=== PATIENT | female | born 1960 | race Caucasian/White ===

== ENCOUNTER 2017-04-05 21:15 | Emergency (ER) | payer OTHER ==
[~2017-04-05] VITALS: Ht 156.2 cm; Wt 92.4 kg
[~2017-04-05 21:15] MED LIST: AZIT250T PO; BCPILLS PO
[2017-04-05 21:17] VITALS: TEMP 36.4; Ht 156.2 cm; Wt 92.4 kg
[2017-04-05] MEDS ORDERED: ACETAMINOPHEN 500 MG TAB PO STA (21:33)
--- NOTE | 2017-04-05 21:52 | DIAGNOSTIC IMAGING REPORT ---
R FOOT MIN 3 VIEWS ROUTINE CLINICAL HISTORY: R foot pain, no trauma pain COMPARISON: None. DISCUSSION: Degenerative change first metatarsophalangeal joint. All remaining osseous structures are unremarkable. Alignment is anatomic. There is no evidence for fracture or dislocation. Subtalar joint is intact. There is no evidence for soft tissue swelling. IMPRESSION: Degenerative change first metatarsophalangeal joint. Otherwise negative study. The above report was generated using voice recognition software. It may contain grammatical, syntax or spelling errors. Electronically signed by: Earl Garcia M.D. 04/05/2017 9:51 PM Dictated Date/Time: 04/05/2017 9:50 PM
[2017-04-05] MEDS ORDERED: CHOL1000 PO (21:56)
[2017-04-05] MEDS ORDERED: AMPH30CA3 PO (21:56)
[2017-04-05] MEDS ORDERED: THYROID PO (21:56)
[2017-04-05] MEDS ORDERED: CALC-5 PO (21:56)
[2017-04-05] MEDS ORDERED: LEVO125T5 PO (21:56)
[2017-04-05] MEDS ORDERED: ASCO500T3 PO (21:56)
--- NOTE | 2017-04-05 21:56 | EMERGENCY ROOM VISIT NOTE ---
History First contact with patient: 21:26 Chief Complaint: FOOT PAIN Stated Complaint: HURT R FOOT History of Present Illness The patient is a 56 year old female who presents to the Emergency Room via private vehicle accompanied by with complaints of "her right foot". The patient states that earlier today she was doing a lot of walking, and ascending stairs. She states she has a bone spur on the right foot therefore was doing stretches today that would help. She states that she was doing a lot of stretches. This included putting her foot up against a wall with extreme dorsiflexion as well as also on the edge of steps with her toes doing stretches for the plantar fascia. She states that it was when she went to stand up at one point that she felt pain in the right midfoot and in the plantar fascia region. She has a history of bone spurs. She rates the overall pain as a 6/ 10. She notes no pain in the calf. She states that there are perhaps some not feelings in both calves but notes she was very active today. There is no shortness of breath. No calf swelling. Of additional note she states that for 4 days now she has had postnasal drip, and rhinorrhea. Review of Systems A complete 6-point Review of Systems was discussed with the patient, with pertinent positives and negatives listed in the History of Present Illness. All remaining Review of Systems questions can be considered negative unless otherwise specified. Past Medical/Surgical History Bone spurs of the same foot Family History No pertinent Social History Smoking Status: Never Smoker Patient lives locally. Current/Historical Medications Scheduled Amphetamine-Dextroamphetamine 30MG (Adderall Xr 30MG), 60 MG PO DAILY Ascorbic Acid (Vitamin C), 500 MG PO DAILY Calcium-Magnesium W/ Vitamin D (Calcium 500), 500 MG PO BID Cholecalciferol (Vitamin D3), 1,000 INTER.UNIT PO TID Levothyroxine Sodium (Levothyroxine Sodium), 125 MCG PO DAILY Prednisone (Prednisone Tab), 0 PO DAILY [Desicated Thyroid], 45 MG PO DAILY Physical Exam Vital Signs Date Time Temp Pulse Resp B/P (MAP) Pulse Ox O2 Delivery O2 Flow Rate FiO2 04/05/17 22:16 81 19 138/89 96 04/05/17 21:17 36.4 86 16 157/79 96 Room Air Physical Exam VITAL SIGNS - Vital signs and nursing notes were reviewed. Stable. Hypertensive. Afebrile. GENERAL -56-year-old female appearing her stated age who is in no acute distress. Communicates well with provider and answers questions appropriately. SKIN - Without rashes. Skin overlying the right foot is unremarkable. No breaks in the integument. No erythema, edema or excessive or unreasonable warmth. HEAD - NC/AT. EARS - No deformities of external structures noted on gross examination bilaterally. No evidence of infection. NOSE - Midline and without cyanosis. No epistaxis or purulent drainage noted. Moist nasal mucosa. MOUTH/OROPHARYNX - Without perioral cyanosis. LUNGS - Chest wall symmetric without accessory muscle use, intercostals retractions, or central cyanosis. Normal vesicular breath sounds CTA B/L. No wheezes, rales, or rhonchi appreciated. CARDIAC - RRR with S1/S2. No murmur, rubs, or gallops appreciated. EXTREMITIES - No clubbing or peripheral cyanosis. No pretibial edema present. Tenderness to palpation overlying the first metatarsal mid region, as well as a plantar fascial region. Excellent pulses in this region. +5/5 strength noted in UE/LE bilaterally. Medical Decision & Procedures ER Provider Diagnostic Interpretation: R FOOT MIN 3 VIEWS ROUTINE CLINICAL HISTORY: R foot pain, no trauma pain COMPARISON: None. DISCUSSION: Degenerative change first metatarsophalangeal joint. All remaining osseous structures are unremarkable. Alignment is anatomic. There is no evidence for fracture or dislocation. Subtalar joint is intact. There is no evidence for soft tissue swelling. IMPRESSION: Degenerative change first metatarsophalangeal joint. Otherwise negative study. The above report was generated using voice recognition software. It may contain grammatical, syntax or spelling errors. Electronically signed by: Earl Garcia M.D. 04/05/2017 9:51 PM Medications Administered Medications (Trade) Dose Ordered Sig/Debra Route Start Time Stop Time Status Last Admin Dose Admin Acetaminophen (Tylenol Tab) 500 mg NOW STAT PO 04/05/17 21:33 04/05/17 21:34 DC 04/05/17 21:33 500 MG Medical Decision Patient was seen and evaluated as above. She presents to us today of right foot pain. She was given ice packs, Tylenol and x-rays were obtained. No acute fracture or dislocation. I suspect that her fasciitis, as well as overuse and she was stretching today. She is encouraged upon use of conservative management. She is to follow-up with her family doctor or perhaps orthopedics if this persists. I do not suspect DVT however she was educated upon risk of this in the future and worrisome symptoms in which to return. She was educated upon management, educated upon worrisome symptoms in which to return, had questions as per the discharge, and was discharged home in good condition. She notes that she also has these symptoms of postnasal drip and rhinorrhea for the past 4 days. She has had prednisone in the past with good relief and questions if this will be beneficial. I will provide her a short prescription of this. In the evaluation and treatment of this patient, the following differential diagnoses were considered: Lisfranc Fracture, Talus Fracture, Tarsal Fracture, Foot Sprain. Impression Primary Impression: Foot pain Departure Information Dispostion Home / Self-Care Condition GOOD Prescriptions Prednisone (Prednisone Tab) 20 Mg Tab 0 PO DAILY, #7 TAB 2 TABS DAILY FOR 2 DAYS, THEN 1 TAB DAILY FOR 2 DAYS, THEN 1/2 TAB DAILY FOR 2 DAYS. Prov: Nilton Coleman PA-C 04/05/17 Referrals Radha Stock D.O. (PCP) Michi Keita MD Patient Instructions My [facility] Additional Instructions You have been treated in the Emergency Department for a R foot pain. You have been prescribed Prednisone to be take as directed. This is an anti- inflammatory medicine to be used to help minimize your symptoms. You should take the COMPLETE course of the medication. For pain control, you can use the following [id number] medicines: - Regular strength (325mg/tab) Tylenol (acetaminophen) 2 tabs every 4-6 hours as needed. Do not exceed 12 tablets in a 24 hour period. Avoid taking more than 3 grams (3000 mg) of Tylenol per day. This includes any other sources of acetaminophen you may take on a regular basis. - Regular strength (200 mg/tab) Advil (ibuprofen) 1-2 tabs every 4-6 hours as needed. Do not exceed a dose of 3200 mg per day. If this is a recent injury (<24 hrs), ice can be applied to the area of pain for the first 3 days to help decrease pain and inflammation. You have been provided the number for an Orthopaedic Surgeon. You should call this number as soon as possible to establish a follow-up visit from today's Emergency Department visit. Keep the foot brace/splint in place until cleared by Orthopedics. Use the crutches you have been provided to keep ALL weight off of the foot until weight bearing is tolerable. Return to the Emergency Department if your current symptoms worsen despite treatment course outlined above, or if you develop any of the following symptoms : intractable pain despite aforementioned treatment course or new onset of numbness or tingling of the foot.
[2017-04-05] MEDS ORDERED: PRED20TA2 PO (22:04)
[2017-04-05 22:16] VITALS: BP 138/89; PULSE 81; O2SAT 96
[2017-09-16] MEDS ORDERED: HYDR-5688 PO (10:36)
[2017-09-16] MEDS ORDERED: ONDA8TAB62 SL (10:36)
[2017-09-16] MEDS ORDERED: ELAS-1213 EXT (10:41)
== END 2017-04-05 22:17 | disposition home or self-care (01) ==
LOC: C.EDB 21:15 → C.EDD 22:17
DX: M79.671 Pain in right foot (principal); M19.071 Primary osteoarthritis, right ankle and foot; M77.9 Enthesopathy, unspecified

== ENCOUNTER 2022-12-10 09:54 | Inpatient (IN) ==
--- NOTE | 2022-12-10 10:12 | Emergency Department Note ---
Impression & Plan Overdose on Tylenol, Acute dehydration, Transaminitis, Nausea & vomiting ED Provider Note NAME: JENNIFER MARTIN AGE: 62 SEX: F : 1960 ARRIVES VIA: Walk-In INFORMANT: Patient, ED PROVIDER(S): Hamlet Day MD CHIEF COMPLAINT: Overdose MEDICAL DECISION MAKING: Patient presents due to concern for Tylenol overdose. IV was established and blood work was obtained along with Tylenol levels. I did speak with the [facility] Dalia who recommended treatment based on elevated LFTs of detectable Tylenol level given the patient's ingestion was last night. Patient does have a detectable Tylenol level and the patient does have elevated LFTs. N-acetylcysteine was ordered for treatment. Patient's blood work otherwise showed a normal white count H&H and platelet count. The patient's kidney function is normal. Hyponatremia noted at 130. Transaminitis with a bilirubin of 1.4 AST of 414, ALT 178 alk phos of 167. Patient's TSH is normal with negative salicylate and alcohol. I spoke with the on-call medical service and the patient was admitted to the medicine service by Dr. East. Critical Care: I have personally spent 55 minutes of critical care time in direct management of this patient. This includes bedside care, interpretation of diagnostic studies, and testing, discussion with consultants, patient, and family members, and other require inpatient management activities. This 55 minutes is in excess of all separately billable procedures. Prior /Outside records reviewed: I reviewed an operative report from Dr. Shearer from November 2018. Patient was seen for right foot failed Cartiva implant arthroplasty. Patient did have removal of the implant. Differential diagnosis: Overdose, medication side effect, dehydration, infection, hypoglycemia, electrolyte abnormalities, arrythmia, among other etiologies were considered. Diagnostics, as interpreted by me: ECG: Sinus tachycardia, rate of 107, wide QRS, right bundle branch block pattern. No ST elevations. Cardiac monitoring: An order was placed for continuous cardiac monitoring. The monitor shows a rate of 102 with tachycardic and regular rhythm. Patient was placed on pulse oximetry Medical decision rules: none Imaging studies: See below HPI: Patient presents due to concern for ingestion of Tylenol. The patient states that she had 3 handfuls of approximately 10 extract Tylenols sometime between 5 and 7:00 last evening. The patient states that she has been undergoing increasing stress with her brother undergoing divorce and requesting money for some sort of scan. The patient also relates that her daughter who is recently is recently become transgender and this has become very difficult on the family. Patient denies any falls or trauma. The patient states that she took her regularly scheduled medications yesterday as well as today but did not take anything else inappropriately. Patient has had associated nausea and vomiting with some epigastric abdominal discomfort. Patient denies any blood. No dysuria or difficulties with defecation. PAST MEDICAL HISTORY: See Below PAST SURGICAL HISTORY: See Below SOCIAL HISTORY: See Below HOME MEDICATIONS: See Below ALLERGIES: See Below VITALS: See Below PHYSICAL EXAMINATION: GENERAL: Anxious in appearance. EYE EXAM: Normal conjunctiva. PERRL, no anisocoria and EOM's grossly intact w/o pain. OROPHARYNX: Moist mucus membranes, grossly normal dentition. NECK: Supple, no nuchal rigidity, no adenopathy, non-tender. No signs of meningismus. FROM of the neck with good chin to chest and neck extension. No stridor. LUNGS: Clear to auscultation. Normal chest wall mechanics. HEART: Tachycardic and regular, no MRG. ABDOMEN: Abdomen soft, non-tender, no masses, no rebound or guarding. BACK: No CVA TTP. SKIN: No rashes and no bruising. UPPER EXTREMITIES: Upper extremities are grossly normal. LOWER EXTREMITIES: Grossly normal, no edema. NEURO EXAM: A&O x3, cranial nerves II-XII grossly intact, normal speech, moves all 4 extremities. Past Med/Surg History Medical History (Updated 12/11/22 @ 10:45 by Hamlet Day MD) Anxiety Attention deficit disorder (ADD) Depression Hypothyroid Osteoarthritis Personal history of gastric ulcer Surgical History H/O foot surgery RT FOOT (BONE SPUR) History of section X 1 History of tooth extraction Strabismus LEFT EYE Family History Son Family history of diabetes mellitus Social History Smoking Status: Never smoker Cigarettes Per Day: SMOKES OCCASIONALLY/NOT EVERDAY; Second Hand Exposure: No; Do You Dip or Chew Tobacco: No; Hx Alcohol Use: No Hx Substance Use: No Preferred Language: Malay Communication Ability: Effective Research And Development Technician Required: No Beliefs That Will Affect Care: None Current Living Situation: Spouse Other Information That Helps Us Care for You: No Feels Safe at Home: Yes Safety Concerns: Feels Safe At This Time Assistive Devices: Glasses Allergies Allergies Allergy/AdvReac Type Severity Reaction Status Date / Time Penicillins Allergy Intermediate SWELLING/HI Verified 12/25/18 15:31 VES Sulfa (Sulfonamide Allergy Mild RASH Verified 12/25/18 15:31 Antibiotics) sulfamethoxazole Allergy Mild RASH Verified 11/07/18 08:08 trimethoprim Allergy Mild RASH Verified 11/07/18 08:08 Home Meds Home Medications Medication Instructions Recorded Confirmed calcium carbonate 600 mg-vitamin 1 tab PO BID 12/29/17 12/10/22 D3 20 mcg (800 unit) chewable tablet (Caltrate 600 plus D) levothyroxine 125 mcg capsule 125 mcg PO QAM 12/29/17 12/10/22 Nature Thyroid 0.5 tab PO HS 05/16/18 12/10/22 ferrous sulfate 325 mg (65 mg 325 mg PO DAILY 05/16/18 12/10/22 iron) tablet (iron) lactobacillus combination no.4 3 3,000 mmu cells PO DAILY PRN Other 05/16/18 12/10/22 billion cell capsule (Probiotic) Estrogen 6 ml EXT DAILY 09/11/18 12/10/22 Progestin Syringe See Rx Instructions .Route .COMPLEX 12/10/22 12/10/22 fluoxetine 40 mg capsule 80 mg PO QAM 12/10/22 12/10/22 hydroxyzine HCl 25 mg tablet 25 mg PO PM 12/10/22 12/10/22 trazodone 50 mg tablet 50 mg PO HS PRN Sleep 12/10/22 12/10/22 Results & Data (ED) Vital Signs Vital Signs - 24 hr 12/10/22 12:47 Pulse Rate [Right Finger] 96 H Pulse Rhythm [Right Finger] Regular Pulse Strength [Right Finger] Normal Respiratory Rate 20 Respiratory Effort / Characteristics Non-Labored Respiratory Depth Normal Respiratory Pattern Regular Pulse Oximetry 97 Oxygen Delivery Method Room Air Home Medications Current Medication List: was personally reviewed by me Laboratory Data Attestation: I reviewed the patient's lab results. 12/10/22 10:05 09/04/23 16:53 Lab Results 12/10/22 12/10/22 12/10/22 Range/Units 10:05 10:05 10:05 WBC 9.63 (4.8-10.8) K/ul RBC 5.18 (4.20-5.40) M/uL Hgb 15.3 (12.0-16.0) g/dl Hct 43.9 (37.0-47.0) % MCV 84.7 (80.0-100.0) fL MCH 29.5 (25.0-34.0) pg MCHC 34.9 (32.0-36.0) g/dL RDW Std Deviation 50.7 H (36.4-46.3) fL RDW Coeff of Stefan 16.7 H (11.5-14.5) % Plt Count 223 (130-400) K/uL MPV 9.2 L (9.4-12.4) fL Immature Gran % (Auto) 0.2 % Neut % (Auto) 83.2 % Lymph % (Auto) 13.0 % Mccreary % (Auto) 2.9 % Eos % (Auto) 0.3 % Baso % (Auto) 0.4 % Neut # (Auto) 8.01 H (1.40-6.50) K/uL Lymph # (Auto) 1.25 (1.20-3.40) K/uL Mccreary # (Auto) 0.28 (0.11-0.59) K/uL Eos # (Auto) 0.03 (0.00-0.50) K/uL Baso # (Auto) 0.04 (0.00-0.20) K/uL Immature Gran # (Auto) 0.02 (0.01-0.20) K/uL PT 10.8 (9.0-12.0) Seconds INR 1.0 (0.9-1.1) APTT 27.9 (21.0-31.0) Seconds PTT Ratio 1.0 Sodium 130 L (136-145) mmol/L Potassium 4.1 (3.5-5.1) mmol/L Chloride 99 (98-107) mmol/L Carbon Dioxide 19 L (21-32) mmol/L Anion Gap 12 H (3-11) BUN 12 (6-23) mg/dl Creatinine 0.76 (0.6-1.2) mg/dl Est Cr Clr Drug Dosing 90.1 ml/min Est GFR ( Amer) 98.8 ml/min Est GFR (Non-Af Amer) 85.3 ml/min BUN/Creatinine Ratio 15.8 (10-20) Glucose 122 H (70-99(Fasting)) mg/dl Calcium 9.2 (8.6-10.3) mg/dl Phosphorus 3.5 (2.5-4.9) mg/dl Magnesium 1.8 (1.7-2.4) mg/dl Total Bilirubin 1.4 H (0.2-1.0) mg/dl AST 414 H (13-39) U/L ALT 178 H (7-52) U/L Alkaline Phosphatase 167 H (34-104) U/L Total Protein 7.5 (6.0-8.3) gm/dl Albumin 4.6 (3.4-5.0) gm/dl Globulin 2.9 (2.5-4.0) gm/dl Albumin/Globulin Ratio 1.6 (0.9-2) TSH (0.300-4.500) uIu/ml Salicylates (3.0-30) mg/dl Acetaminophen (10-30) ug/ml Ethyl Alcohol mg/dL (<10.0) mg/dl 12/10/22 12/10/22 12/10/22 Range/Units 10:05 10:05 10:47 WBC (4.8-10.8) K/ul RBC (4.20-5.40) M/uL Hgb (12.0-16.0) g/dl Hct (37.0-47.0) % MCV (80.0-100.0) fL MCH (25.0-34.0) pg MCHC (32.0-36.0) g/dL RDW Std Deviation (36.4-46.3) fL RDW Coeff of Stefan (11.5-14.5) % Plt Count (130-400) K/uL MPV (9.4-12.4) fL Immature Gran % (Auto) % Neut % (Auto) % Lymph % (Auto) % Mccreary % (Auto) % Eos % (Auto) % Baso % (Auto) % Neut # (Auto) (1.40-6.50) K/uL Lymph # (Auto) (1.20-3.40) K/uL Mccreary # (Auto) (0.11-0.59) K/uL Eos # (Auto) (0.00-0.50) K/uL Baso # (Auto) (0.00-0.20) K/uL Immature Gran # (Auto) (0.01-0.20) K/uL PT (9.0-12.0) Seconds INR (0.9-1.1) APTT (21.0-31.0) Seconds PTT Ratio Sodium (136-145) mmol/L Potassium (3.5-5.1) mmol/L Chloride (98-107) mmol/L Carbon Dioxide (21-32) mmol/L Anion Gap (3-11) BUN (6-23) mg/dl Creatinine (0.6-1.2) mg/dl Est Cr Clr Drug Dosing ml/min Est GFR ( Amer) ml/min Est GFR (Non-Af Amer) ml/min BUN/Creatinine Ratio (10-20) Glucose (70-99(Fasting)) mg/dl Calcium (8.6-10.3) mg/dl Phosphorus (2.5-4.9) mg/dl Magnesium (1.7-2.4) mg/dl Total Bilirubin (0.2-1.0) mg/dl AST (13-39) U/L ALT (7-52) U/L Alkaline Phosphatase (34-104) U/L Total Protein (6.0-8.3) gm/dl Albumin (3.4-5.0) gm/dl Globulin (2.5-4.0) gm/dl Albumin/Globulin Ratio (0.9-2) TSH 2.769 (0.300-4.500) uIu/ml Salicylates < 3.0 L (3.0-30) mg/dl Acetaminophen 7 L (10-30) ug/ml Ethyl Alcohol mg/dL < 10.0 (<10.0) mg/dl Administered Medications Levothyroxine Sodium (Levothyroxine Sodium 125 Mcg Tablet) 125 mcg PO DAILY[facility] Stop: 01/10/23 06:29 Last Admin: 12/11/22 05:59 Dose: 125 mcg Documented By: JEREMIAS Discontinued Medications Acetylcysteine (Acetylcysteine Iv 21 Hr Regimen (>40kg)) 1 each IV NOW STA; Protocol Stop: 12/10/22 11:21 Last Admin: 12/10/22 12:12 Dose: Not Given Documented By: CHERYL Sodium Chloride (Nss 1000ml) 1,000 mls @ 999 mls/hr IV .Q1H1M ONE Stop: 12/10/22 11:53 Last Infusion: 12/10/22 12:12 Dose: 0 mls/hr Documented By: Admin: 12/10/22 11:04 Dose: 999 mls/hr Documented By: GERBER Acetylcysteine 5,000 mg/ (Dextrose) 525 mls @ 125 mls/hr IV ONCE ONE Stop: 12/10/22 16:33 Last Infusion: 12/10/22 18:24 Dose: 0 mls/hr Documented By: Admin: 12/10/22 13:59 Dose: 125 mls/hr Documented By: CHEYRL Acetylcysteine 10,000 mg/ (Dextrose) 1,050 mls @ 62.5 mls/hr IV ONCE ONE Stop: 12/11/22 09:11 Last Admin: 12/10/22 18:24 Dose: 62.5 mls/hr Documented By: ILDA Acetylcysteine 15,000 mg/ (Dextrose) 275 mls @ 200 mls/hr IV ONCE ONE Stop: 12/10/22 12:43 Last Infusion: 12/10/22 14:14 Dose: 0 mls/hr Documented By: Admin: 12/10/22 12:08 Dose: 200 mls/hr Documented By: CHERYL Magnesium Sulfate/Dextrose (Magnesium Sulfate / D5w) 1 gm in 100 mls @ 50 mls/hr IV ONE ONE Stop: 12/10/22 16:56 Last Infusion: 12/10/22 17:25 Dose: 0 mls/hr Documented By: Admin: 12/10/22 15:10 Dose: 50 mls/hr Documented By: ILDA Potassium Chloride (K Yinka / Wtr) 10 meq in 100 mls @ 100 mls/hr IV Q1H KARRIE Stop: 12/10/22 20:59 Last Infusion: 12/10/22 23:44 Dose: 0 mls/hr Documented By: Admin: 12/10/22 21:17 Dose: 100 mls/hr Documented By: Infusion: 12/10/22 20:16 Dose: 100 mls/hr Documented By: Admin: 12/10/22 19:16 Dose: 100 mls/hr Documented By: IRASEMA Lorazepam (Lorazepam 2 Mg/1 Ml Vial) 1 mg IV NOW STA Stop: 12/10/22 10:54 Last Admin: 12/10/22 11:04 Dose: 1 mg Documented By: GERBER Melatonin (Melatonin 3 Mg Tab) 3 mg PO HS ONE Stop: 12/10/22 19:49 Last Admin: 12/10/22 21:21 Dose: 3 mg Documented By: IRASEMA Metoclopramide HCl (Metoclopramide Hcl Inj 5 Mg/Ml 2 Ml Vial) 5 mg IV ONE ONE Stop: 12/10/22 11:21 Last Admin: 12/10/22 11:45 Dose: 5 mg Documented By: GERBER Metoclopramide HCl (Metoclopramide Hcl Inj 5 Mg/Ml 2 Ml Vial) 5 mg IV ONE ONE Stop: 12/10/22 21:05 Last Admin: 12/10/22 21:17 Dose: 5 mg Documented By: IRASEMA Miscellaneous (Levothyroxine 125mcg Cap ~ Order Awaiting Action) 1 each N/A QS KARRIE Stop: 01/09/23 15:59 Last Admin: 12/10/22 16:25 Dose: Not Given Documented By: ILDA Potassium Chloride (Potassium Chloride Crtab 20 Meq Tabcr) 40 meq PO NOW STA Stop: 12/10/22 18:47 Last Admin: 12/10/22 19:17 Dose: 40 meq Documented By: IRASEMA Discharge Plan Visit Data Chief Complaint: Overdose (Intentional) Stated Complaint: OVERDOSE TOOK 3 HANDFULS OF TYLENOL ED Provider: Hamlet Day Discharge Problem: Overdose on Tylenol, Acute dehydration, Transaminitis, Nausea & vomiting Patient Disposition: Admitted As Inpatient Discharge Instructions Interventions: ED Discharge Assessment Last Done: 12/10/22 15:34
[2022-12-10 10:26] LABS: Basophils # (auto) 0.04 K/uL (0.00-0.20); Basophils % (auto) 0.4 %; Eosinophils # (auto) 0.03 K/uL (0.00-0.50); Eosinophils % (auto) 0.3 %; Hematocrit (blood only) 43.9 % (37.0-47.0); Hemoglobin 15.3 g/dl (12.0-16.0); Immature Granulocytes # (auto) 0.02 K/uL (0.01-0.20); Immature Granulocytes % (auto) 0.2 %; Lymphocytes # (auto) 1.25 K/uL (1.20-3.40); Mean Corpuscular Hemoglobin 29.5 pg (25.0-34.0); Mean Corpuscular Hgb Conc 34.9 g/dL (32.0-36.0); Mean Corpuscular Volume 84.7 fL (80.0-100.0); Mean Platelet Volume 9.2 fL (9.4-12.4); Monocytes # (auto) 0.28 K/uL (0.11-0.59); Monocytes % (auto) 2.9 %; Neutrophils # (auto) 8.01 K/uL (1.40-6.50); Neutrophils % (auto) 83.2 %; Platelet Count 223 K/uL (130-400); RDW Coefficient of Variation 16.7 % (11.5-14.5); RDW Standard Deviation 50.7 fL (36.4-46.3); Red Blood Count 5.18 M/uL (4.20-5.40); White Blood Count 9.63 K/ul (4.8-10.8)
[2022-12-10 10:51] LABS: Partial Thromboplastin Time 27.9 Seconds (21.0-31.0); Prothrombin Time 10.8 Seconds (9.0-12.0)
[2022-12-10] MEDS ORDERED: SODIUM CHLORIDE 0.9% 1,000 ML IV ONE (10:53)
[2022-12-10] MEDS ORDERED: LORazepam 2 MG/1 ML VIAL IV STA (10:53)
[2022-12-10 11:04] LABS: Albumin Level 4.6 gm/dl (3.4-5.0); Bilirubin,Total 1.4 mg/dl (0.2-1.0); Calcium 9.2 mg/dl (8.6-10.3); Potassium 4.1 mmol/L (3.5-5.1)
[2022-12-10 11:10] LABS: Acetaminophen 7 ug/ml (10-30); Albumin Globulin Ratio 1.6 (0.9-2); BUN Creatinine Ratio 15.8 (10-20); Creatinine Clr Calc Pharmacy 90.1 ml/min; Est GFR (African American) 98.8 ml/min; Est GFR (Non-African American) 85.3 ml/min; Globulin 2.9 gm/dl (2.5-4.0); Salicylate < 3.0 mg/dl (3.0-30); Total Protein 7.5 gm/dl (6.0-8.3)
[2022-12-10] MEDS ORDERED: AcetylCYSTEINE IV 21 HR REGIMEN (>40KG) IV STA (11:20)
[2022-12-10] MEDS ORDERED: AcetylCYSTEINE 15,000 MG in DEXTROSE 5% 200 ML IV ONE (11:20)
[2022-12-10] MEDS ORDERED: METOCLOPRAMIDE HCL INJ 5 MG/ML 2 ML VIAL IV ONE ×2 (11:20→21:04)
[2022-12-10 11:54] LABS: Appearance Urine Cloudy (Clear); Bilirubin Urine Negative (Negative); Blood Urine 3+ (Negative); Color Urine Yellow; Glucose Urine UA Negative (Negative); Ketones Urine Negative (Negative); Leukocyte Esterase Urine 3+ (Negative); Nitrite Urine Negative (Negative); Protein Urine Trace (Negative); Specific Gravity Urine 1.004 (1.000-1.030); Urobilinogen Urine Negative (Negative); pH Urine 6.5 (4.5-7.5)
[2022-12-10] MEDS ORDERED: AcetylCYSTEINE 5,000 MG in DEXTROSE 5% 500 ML IV ONE (12:21)
[2022-12-10 12:25] LABS: Epithelial Cell Urine Auto >30 /lpf (0-5); WBC Urine Automated >30 /hpf (0-5)
[2022-12-10 12:26] LABS: Bacteria Urine Automated 1+ (Negative)
[2022-12-10 12:43] LABS: Amphetamines+Metham, Urine Neg (Neg); Barbiturates, Urine Neg (Neg); Benzodiazepine, Urine Neg (Neg); Cocaine, Urine Neg (Neg); MDMA (Ecstacy), Urine Neg (Neg); Methadone, Urine Neg (Neg); Opiate, Urine Neg (Neg); Phencyclidine, Urine Neg (Neg)
--- NOTE | 2022-12-10 12:48 | History & Physical Report ---
Date of Service December 10, 2022 Assessment & Plan (1) Intentional overdose: Plan: with acetaminophen - describes stressors at home however seems supportive - the main stressor: daughter canceled wedding and plans to transition to a male - ED provider contacted poison control and started pt on NAC, will continue - LFTs elevated - continue to closely monitor - ECG obtained and QTc prolonged - will try to avoid QT prolonging agents, repea t ECG - monitor closely on telemetry - check electrolytes including Mag, and replete and monitor as needed -Suicidal precautions -Psychiatry consultation -Patient follows with [facility], and previously was on Zoloft. Currently on Prozac 80 mg daily. Patient also reports taking trazodone as needed for sleep, and hydroxyzine as needed for anxiety. (2) Hypothyroid: Plan: TSH 2.7 - continue home synthroid History of Present Illness Chief Complaint: Tylenol overdose, intentional Primary Care Provider: NO PCP Pt used to follow w/ Dr. Stock and did not establish with a new provider yet. 62 yo F w/ hx of MDD, hypothyroidism who presents after tylenol overdose. Per ED provider report- pt took about 3 handfuls of tylenol, intentionally. This was confirmed by the pt as well. Patient states that they have been having a rough year, and especially very rough last 2 to 3 weeks. Their daughter was supposed to get , however now she canceled the wedding and also told her parents that she plans to transition to a male. Patient's is currently present at the bedside. Patient's seems to be supportive. Patient states she did not tell him that she took Tylenol last night, she did not tell him until this morning. she says she just wanted "it to end". She was able to eat yesterday, however last night developed diarrhea after taking all the Tylenol. This morning she was having nausea and had diarrhea in the ED. States that she felt little dizzy and lightheaded, however now she would like to drink something. She does not feel short of breath, and does not have chest pain, however her abdomen feels bloated and distended. Patient's tells me that he called poison control and he was advised to take the patient to the ED. Poison control was contacted and ED provider discussed w/ pharmacy and started pt on NAC. In the ED ECG was also obtained, showed prolonged QTc. Patient also tells me that for her behavioral health she follows with [facility]. She used to be on Zoloft, however now takes Prozac 80 mg daily and she did take the medication yesterday and today. She also was prescribed trazodone as needed and hydroxyzine as needed. She reports taking Synthroid 125 mcg daily. In addition to that she also follows with holistic doctor and uses topical estrogen and progesterone. Allergies Allergy/AdvReac Type Severity Reaction Status Date / Time Penicillins Allergy Intermediate SWELLING/HI Verified 12/25/18 15:31 VES Sulfa (Sulfonamide Allergy Mild RASH Verified 12/25/18 15:31 Antibiotics) sulfamethoxazole Allergy Mild RASH Verified 11/07/18 08:08 trimethoprim Allergy Mild RASH Verified 11/07/18 08:08 Home Medications Medication Instructions Recorded Confirmed Type calcium carbonate 600 mg-vitamin 1 tab PO BID 12/29/17 12/10/22 History D3 20 mcg (800 unit) chewable tablet (Caltrate 600 plus D) levothyroxine 125 mcg capsule 125 mcg PO QAM 12/29/17 12/10/22 History Nature Thyroid 0.5 tab PO HS 05/16/18 12/10/22 History ferrous sulfate 325 mg (65 mg 325 mg PO DAILY 05/16/18 12/10/22 History iron) tablet (iron) lactobacillus combination no.4 3 3,000 mmu cells PO DAILY PRN Other 05/16/18 12/10/22 History billion cell capsule (Probiotic) Estrogen 6 ml EXT DAILY 09/11/18 12/10/22 History Progestin Syringe See Rx Instructions .Route .COMPLEX 12/10/22 12/10/22 History fluoxetine 40 mg capsule 80 mg PO QAM 12/10/22 12/10/22 History hydroxyzine HCl 25 mg tablet 25 mg PO PM 12/10/22 12/10/22 History trazodone 50 mg tablet 50 mg PO HS PRN Sleep 12/10/22 12/10/22 History Past Med/Surg History Medical History (Updated 12/10/22 @ 13:50 by Karl East MD) Anxiety Attention deficit disorder (ADD) Depression Hypothyroid Osteoarthritis Personal history of gastric ulcer Surgical History H/O foot surgery RT FOOT (BONE SPUR) History of section X 1 History of tooth extraction Strabismus LEFT EYE Family History Son Family history of diabetes mellitus Social History Smoking Status: Former smoker Cigarettes Per Day: SMOKES OCCASIONALLY/NOT EVERDAY; Second Hand Exposure: No; Do You Dip or Chew Tobacco: No; Hx Alcohol Use: No Hx Substance Use: Yes Last Used Substance Other:: ONLY WHEN ON VACATION (LAST USED 2017) Preferred Language: Maori Communication Ability: Effective Fiberglass Luggage Molder Required: No Beliefs That Will Affect Care: None Current Living Situation: Spouse Feels Safe at Home: Yes Assistive Devices: Contacts and Glasses Review of Systems Review of Systems: All systems reviewed & are unremarkable except as noted in HPI & below Physical Exam Constitutional: WD/WN, vitals as above (obese F in NAD) Eyes: PERRL, conjunctivae normal, anicteric sclerae ENMT: external ear and nose normal, oropharynx normal Neck: trachea midline, no thyromegaly Respiratory: normal respiratory effort, lungs clear to auscultation Cardiovascular: RRR, no murmur, no edema Chest (Breasts): Chest: normal inspection of chest Gastrointestinal (Abdomen): normal bowel sounds, soft, nontender, no hepatosplenomegaly Musculoskeletal: no cyanosis or clubbing, extremities motor strength 5/5 Skin: no rashes, warm and dry Neurologic: PERRL, EOMI, accommodation nl, no face palsy, no dysarthria Psychiatric: A+Ox3, euthymic affect Results & Data Results & Data Vital Signs (Past 12 Hours) Vital Signs Temp Pulse Resp BP Pulse Ox O2 Del Method 12/10/22 10:10 96 H 12/10/22 10:01 36.4 C L 105 H 17 180/110 H 95 Room Air Laboratory Results 12/10/22 12/10/22 12/10/22 Range/Units Unknown Unknown 10:47 WBC (4.8-10.8) K/ul RBC (4.20-5.40) M/uL Hgb (12.0-16.0) g/dl Hct (37.0-47.0) % MCV (80.0-100.0) fL MCH (25.0-34.0) pg MCHC (32.0-36.0) g/dL RDW Std Deviation (36.4-46.3) fL RDW Coeff of Stefan (11.5-14.5) % Plt Count (130-400) K/uL MPV (9.4-12.4) fL Immature Gran % (Auto) % Neut % (Auto) % Lymph % (Auto) % Hamilton % (Auto) % Eos % (Auto) % Baso % (Auto) % Neut # (Auto) (1.40-6.50) K/uL Lymph # (Auto) (1.20-3.40) K/uL Hamilton # (Auto) (0.11-0.59) K/uL Eos # (Auto) (0.00-0.50) K/uL Baso # (Auto) (0.00-0.20) K/uL Immature Gran # (Auto) (0.01-0.20) K/uL PT (9.0-12.0) Seconds INR (0.9-1.1) APTT (21.0-31.0) Seconds PTT Ratio Sodium (136-145) mmol/L Potassium (3.5-5.1) mmol/L Chloride (98-107) mmol/L Carbon Dioxide (21-32) mmol/L Anion Gap (3-11) BUN (6-23) mg/dl Creatinine (0.6-1.2) mg/dl Est Cr Clr Drug Dosing ml/min Est GFR ( Amer) ml/min Est GFR (Non-Af Amer) ml/min BUN/Creatinine Ratio (10-20) Glucose (70-99(Fasting)) mg/dl Calcium (8.6-10.3) mg/dl Total Bilirubin (0.2-1.0) mg/dl AST (13-39) U/L ALT (7-52) U/L Alkaline Phosphatase (34-104) U/L Total Protein (6.0-8.3) gm/dl Albumin (3.4-5.0) gm/dl Globulin (2.5-4.0) gm/dl Albumin/Globulin Ratio (0.9-2) TSH (0.300-4.500) uIu/ml Urine Color Yellow Urine Appearance Cloudy A (Clear) Urine pH 6.5 (4.5-7.5) Ur Specific Apex 1.004 (1.000-1.030) Urine Protein Trace H (Negative) Urine Glucose (UA) Negative (Negative) Urine Ketones Negative (Negative) Urine Blood 3+ H (Negative) Urine Nitrite Negative (Negative) Urine Bilirubin Negative (Negative) Urine Urobilinogen Negative (Negative) Ur Leukocyte Esterase 3+ H (Negative) Urine WBC (Auto) >30 H (0-5) /hpf Urine RBC (Auto) 5-10 H (0-4) /hpf U Hyaline Cast (Auto) 1-5 (0-5) /lpf U Epithel Cells (Auto) >30 H (0-5) /lpf Urine Bacteria (Auto) 1+ H (Negative) Urine Yeast Not Reportable Salicylates (3.0-30) mg/dl Urine Opiates Screen Neg (Neg) Ur Methadone, Qual Neg (Neg) Acetaminophen (10-30) ug/ml Urine Barbiturates Neg (Neg) Ur Phencyclidine (PCP) Neg (Neg) U Amphetamin/Meth Scrn Neg (Neg) MDMA (Ecstasy) Screen Neg (Neg) U Benzodiazepines Scrn Neg (Neg) Ur Cocaine Metabolite Neg (Neg) U Marijuana (THC) Screen Neg (Neg) Ethyl Alcohol mg/dL < 10.0 (<10.0) mg/dl 12/10/22 12/10/22 12/10/22 Range/Units 10:05 10:05 10:05 WBC (4.8-10.8) K/ul RBC (4.20-5.40) M/uL Hgb (12.0-16.0) g/dl Hct (37.0-47.0) % MCV (80.0-100.0) fL MCH (25.0-34.0) pg MCHC (32.0-36.0) g/dL RDW Std Deviation (36.4-46.3) fL RDW Coeff of Stefan (11.5-14.5) % Plt Count (130-400) K/uL MPV (9.4-12.4) fL Immature Gran % (Auto) % Neut % (Auto) % Lymph % (Auto) % Hamilton % (Auto) % Eos % (Auto) % Baso % (Auto) % Neut # (Auto) (1.40-6.50) K/uL Lymph # (Auto) (1.20-3.40) K/uL Hamilton # (Auto) (0.11-0.59) K/uL Eos # (Auto) (0.00-0.50) K/uL Baso # (Auto) (0.00-0.20) K/uL Immature Gran # (Auto) (0.01-0.20) K/uL PT (9.0-12.0) Seconds INR (0.9-1.1) APTT (21.0-31.0) Seconds PTT Ratio Sodium 130 L (136-145) mmol/L Potassium 4.1 (3.5-5.1) mmol/L Chloride 99 (98-107) mmol/L Carbon Dioxide 19 L (21-32) mmol/L Anion Gap 12 H (3-11) BUN 12 (6-23) mg/dl Creatinine 0.76 (0.6-1.2) mg/dl Est Cr Clr Drug Dosing 90.1 ml/min Est GFR ( Amer) 98.8 ml/min Est GFR (Non-Af Amer) 85.3 ml/min BUN/Creatinine Ratio 15.8 (10-20) Glucose 122 H (70-99(Fasting)) mg/dl Calcium 9.2 (8.6-10.3) mg/dl Total Bilirubin 1.4 H (0.2-1.0) mg/dl AST 414 H (13-39) U/L ALT 178 H (7-52) U/L Alkaline Phosphatase 167 H (34-104) U/L Total Protein 7.5 (6.0-8.3) gm/dl Albumin 4.6 (3.4-5.0) gm/dl Globulin 2.9 (2.5-4.0) gm/dl Albumin/Globulin Ratio 1.6 (0.9-2) TSH 2.769 (0.300-4.500) uIu/ml Urine Color Urine Appearance (Clear) Urine pH (4.5-7.5) Ur Specific Apex (1.000-1.030) Urine Protein (Negative) Urine Glucose (UA) (Negative) Urine Ketones (Negative) Urine Blood (Negative) Urine Nitrite (Negative) Urine Bilirubin (Negative) Urine Urobilinogen (Negative) Ur Leukocyte Esterase (Negative) Urine WBC (Auto) (0-5) /hpf Urine RBC (Auto) (0-4) /hpf U Hyaline Cast (Auto) (0-5) /lpf U Epithel Cells (Auto) (0-5) /lpf Urine Bacteria (Auto) (Negative) Urine Yeast Salicylates < 3.0 L (3.0-30) mg/dl Urine Opiates Screen (Neg) Ur Methadone, Qual (Neg) Acetaminophen 7 L (10-30) ug/ml Urine Barbiturates (Neg) Ur Phencyclidine (PCP) (Neg) U Amphetamin/Meth Scrn (Neg) MDMA (Ecstasy) Screen (Neg) U Benzodiazepines Scrn (Neg) Ur Cocaine Metabolite (Neg) U Marijuana (THC) Screen (Neg) Ethyl Alcohol mg/dL (<10.0) mg/dl 12/10/22 12/10/22 Range/Units 10:05 10:05 WBC 9.63 (4.8-10.8) K/ul RBC 5.18 (4.20-5.40) M/uL Hgb 15.3 (12.0-16.0) g/dl Hct 43.9 (37.0-47.0) % MCV 84.7 (80.0-100.0) fL MCH 29.5 (25.0-34.0) pg MCHC 34.9 (32.0-36.0) g/dL RDW Std Deviation 50.7 H (36.4-46.3) fL RDW Coeff of Stefan 16.7 H (11.5-14.5) % Plt Count 223 (130-400) K/uL MPV 9.2 L (9.4-12.4) fL Immature Gran % (Auto) 0.2 % Neut % (Auto) 83.2 % Lymph % (Auto) 13.0 % Hamilton % (Auto) 2.9 % Eos % (Auto) 0.3 % Baso % (Auto) 0.4 % Neut # (Auto) 8.01 H (1.40-6.50) K/uL Lymph # (Auto) 1.25 (1.20-3.40) K/uL Hamilton # (Auto) 0.28 (0.11-0.59) K/uL Eos # (Auto) 0.03 (0.00-0.50) K/uL Baso # (Auto) 0.04 (0.00-0.20) K/uL Immature Gran # (Auto) 0.02 (0.01-0.20) K/uL PT 10.8 (9.0-12.0) Seconds INR 1.0 (0.9-1.1) APTT 27.9 (21.0-31.0) Seconds PTT Ratio 1.0 Sodium (136-145) mmol/L Potassium (3.5-5.1) mmol/L Chloride (98-107) mmol/L Carbon Dioxide (21-32) mmol/L Anion Gap (3-11) BUN (6-23) mg/dl Creatinine (0.6-1.2) mg/dl Est Cr Clr Drug Dosing ml/min Est GFR ( Amer) ml/min Est GFR (Non-Af Amer) ml/min BUN/Creatinine Ratio (10-20) Glucose (70-99(Fasting)) mg/dl Calcium (8.6-10.3) mg/dl Total Bilirubin (0.2-1.0) mg/dl AST (13-39) U/L ALT (7-52) U/L Alkaline Phosphatase (34-104) U/L Total Protein (6.0-8.3) gm/dl Albumin (3.4-5.0) gm/dl Globulin (2.5-4.0) gm/dl Albumin/Globulin Ratio (0.9-2) TSH (0.300-4.500) uIu/ml Urine Color Urine Appearance (Clear) Urine pH (4.5-7.5) Ur Specific Apex (1.000-1.030) Urine Protein (Negative) Urine Glucose (UA) (Negative) Urine Ketones (Negative) Urine Blood (Negative) Urine Nitrite (Negative) Urine Bilirubin (Negative) Urine Urobilinogen (Negative) Ur Leukocyte Esterase (Negative) Urine WBC (Auto) (0-5) /hpf Urine RBC (Auto) (0-4) /hpf U Hyaline Cast (Auto) (0-5) /lpf U Epithel Cells (Auto) (0-5) /lpf Urine Bacteria (Auto) (Negative) Urine Yeast Salicylates (3.0-30) mg/dl Urine Opiates Screen (Neg) Ur Methadone, Qual (Neg) Acetaminophen (10-30) ug/ml Urine Barbiturates (Neg) Ur Phencyclidine (PCP) (Neg) U Amphetamin/Meth Scrn (Neg) MDMA (Ecstasy) Screen (Neg) U Benzodiazepines Scrn (Neg) Ur Cocaine Metabolite (Neg) U Marijuana (THC) Screen (Neg) Ethyl Alcohol mg/dL (<10.0) mg/dl
[2022-12-10 13:47] LABS: Magnesium 1.8 mg/dl (1.7-2.4)
[2022-12-10 13:52] LABS: Phosphorus 3.5 mg/dl (2.5-4.9)
[2022-12-10] MEDS ORDERED: MAGNESIUM SULFATE / D5W 1 GM/100 ML BAG IV ONE (14:57)
[2022-12-10] MEDS ORDERED: AcetylCYSTEINE 10,000 MG in DEXTROSE 5% 1,000 ML IV ONE (16:21)
[2022-12-10 17:41] LABS: BUN Creatinine Ratio 15.5 (10-20); Bilirubin,Total 1.1 mg/dl (0.2-1.0); Calcium 8.3 mg/dl (8.6-10.3); Creatinine Clr Calc Pharmacy 118.1 ml/min; Est GFR (African American) 116.1 ml/min; Est GFR (Non-African American) 100.2 ml/min
[2022-12-10] MEDS ORDERED: POTASSIUM CHLORIDE CRTAB 20 MEQ TABCR PO STA (18:46)
[2022-12-10] MEDS: POTASSIUM CHLORIDE / WTR 10 MEQ/100 ML PLCT IV SCH ×2 (19:16→21:17)
[2022-12-10] MEDS ORDERED: MELATONIN 3 MG TAB PO ONE (19:48)
--- NOTE | 2022-12-10 23:18 | Electrocardiogram Report ---
Test Reason : Blood Pressure : / mmHG Vent. Rate : 094 BPM Atrial Rate : 094 BPM P-R Int : 124 ms QRS Dur : 122 ms QT Int : 408 ms P-R-T Axes : 014 014 034 degrees QTc Int : 510 ms Normal sinus rhythm Right bundle branch block Abnormal ECG When compared with ECG of 10-SEP-2017 16:36, Premature ventricular complexes are no longer Present Questionable change in QRS axis Confirmed by Pk Honeycutt ([id number]) on 12/10/2022 11:18:23 PM Referred By: REFERRED SELF Confirmed By:Pk Honeycutt
[2022-12-11] MEDS: LEVOTHYROXINE SODIUM 125 MCG TABLET PO SCH (05:59)
[2022-12-11 07:21] LABS: Hematocrit (blood only) 36.4 % (37.0-47.0); Hemoglobin 12.6 g/dl (12.0-16.0); Mean Corpuscular Hemoglobin 29.6 pg (25.0-34.0); Mean Corpuscular Hgb Conc 34.6 g/dL (32.0-36.0); Mean Corpuscular Volume 85.4 fL (80.0-100.0); Mean Platelet Volume 9.6 fL (9.4-12.4); Platelet Count 141 K/uL (130-400); RDW Coefficient of Variation 16.7 % (11.5-14.5); Red Blood Count 4.26 M/uL (4.20-5.40); White Blood Count 4.75 K/ul (4.8-10.8)
[2022-12-11 07:40] LABS: Albumin Globulin Ratio 1.8 (0.9-2); Albumin Level 3.5 gm/dl (3.4-5.0); BUN Creatinine Ratio 9.4 (10-20); Bilirubin,Total 1.2 mg/dl (0.2-1.0); Calcium 7.8 mg/dl (8.6-10.3); Creatinine Clr Calc Pharmacy 129.1 ml/min; Est GFR (African American) 119.6 ml/min; Est GFR (Non-African American) 103.2 ml/min; Magnesium 1.8 mg/dl (1.7-2.4); Potassium 3.4 mmol/L (3.5-5.1); Total Protein 5.5 gm/dl (6.0-8.3)
[2022-12-11 07:43] LABS: INR 1.2 (0.9-1.1); Prothrombin Time 12.5 Seconds (9.0-12.0)
[2022-12-11] MEDS ORDERED: AcetylCYSTEINE 10,000 MG in DEXTROSE 5% 1,000 ML IV ONE (11:00)
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
--- NOTE | 2022-12-11 12:21 | Hospitalist Progress Note ---
Date of Service December 11, 2022 Assessment & Plan (1) Intentional overdose: Plan: Intentional overdose with acetaminophen Patient took 3 handfuls of tylenol night prior to presentation to the ED intention to kill herself. She started to have nausea, weakness and diarrhea; presented to the ED. Tylenol level of 7 ug/ml. AST/ALT/ALP elevated to 414/178/178 on admission; On today's lab; 372 /204/ 94. Started on NAC in the ED. Discussed with poison control over the phone. Due to the persistent elevation of LFTs. Decision made to continue NAC for 16 more hours. She will have CMP and PT/INR done at 11 PM today (12 hours after extension of NAC); further dosing will based on her LFTs and PT/INR. sinus rhythm with right bundle branch block; QTc prolonged. Obtain repeat EKG. Continue to monitor on telemetry. Discussed with psychiatry; patient to be admitted to inpatient psychiatry after medical clearance. Suicide precautions. (2) Hypothyroid: Plan: TSH 2.7 - continue home synthroid Plan Full code DVT prophylaxis SCDs Dispo-transfer to inpatient psychiatry after medical clearance. Time spent evaluating patient, direct bedside care, chart review, placing orders, interpretation of diagnostic studies, discussion with consultants, patient, and family members, as well as other required patient management activities is 60 minutes. Please note the above document was generated using voice recognition software. It may contain grammatical, syntax or spelling errors. Any formal questions or concerns about the content, text or information contained within the body of this dictation should be directly addressed to the provider for clarification Admission and Anticipated Discharge Date Admission Date: December 10, 2022 Subjective Patient seen and examined at bedside. She reports that she is feeling much better today. No longer having nausea, vomiting, abdominal pain or diarrhea. Review of Systems Review of Systems: All systems reviewed & are unremarkable except as noted in Subjective Physical Exam Physical Exam: Constitutional: WD/WN, vitals as above, NAD, sitting up in bed, pleasant, conversing easily Respiratory: normal respiratory effort, lungs clear to auscultation, no wheeze, rales, rhonchi. Normal insp/exp effort, no accessory muscle use Cardiovascular: RRR, no murmur, no edema Vessels: no JVD or carotid bruit Chest: normal inspection of chest Abdomen: normal bowel sounds, soft, nontender, no hepatosplenomegaly Musculoskeletal: no cyanosis or clubbing, extremities motor strength 5/5 Skin: no rashes, warm and dry normal turgor Neurologic: PERRL, EOMI, accommodation nl, no face palsy, no dysarthria CN's II- XI intact bilaterally and moves all extremities Psychiatric: A+Ox3, euthymic affect Results & Data Results & Data Vital Signs (Past 12 Hours) Vital Signs Pulse Resp BP BP Pulse Ox O2 Del Method 12/11/22 06:30 86 20 96 Room Air 12/11/22 04:01 86 19 123/91 97 Room Air 12/11/22 03:27 181/83 H 12/11/22 03:00 86 21 97 Room Air Laboratory Results Laboratory Results WBC 4.75 K/ul (4.8-10.8) L 12/11/22 06:41 RBC 4.26 M/uL (4.20-5.40) 12/11/22 06:41 Hgb 12.6 g/dl (12.0-16.0) 12/11/22 06:41 Hct 36.4 % (37.0-47.0) L 12/11/22 06:41 MCV 85.4 fL (80.0-100.0) 12/11/22 06:41 MCH 29.6 pg (25.0-34.0) 12/11/22 06:41 MCHC 34.6 g/dL (32.0-36.0) 12/11/22 06:41 RDW Std Deviation 51.0 fL (36.4-46.3) H 12/11/22 06:41 RDW Coeff of Stefan 16.7 % (11.5-14.5) H 12/11/22 06:41 Plt Count 141 K/uL (130-400) 12/11/22 06:41 MPV 9.6 fL (9.4-12.4) 12/11/22 06:41 Immature Gran % (Auto) 0.2 % 12/10/22 10:05 Neut % (Auto) 83.2 % 12/10/22 10:05 Lymph % (Auto) 13.0 % 12/10/22 10:05 Bent % (Auto) 2.9 % 12/10/22 10:05 Eos % (Auto) 0.3 % 12/10/22 10:05 Baso % (Auto) 0.4 % 12/10/22 10:05 Neut # (Auto) 8.01 K/uL (1.40-6.50) H 12/10/22 10:05 Lymph # (Auto) 1.25 K/uL (1.20-3.40) 12/10/22 10:05 Bent # (Auto) 0.28 K/uL (0.11-0.59) 12/10/22 10:05 Eos # (Auto) 0.03 K/uL (0.00-0.50) 12/10/22 10:05 Baso # (Auto) 0.04 K/uL (0.00-0.20) 12/10/22 10:05 Immature Gran # (Auto) 0.02 K/uL (0.01-0.20) 12/10/22 10:05 PT 12.5 Seconds (9.0-12.0) H 12/11/22 06:41 INR 1.2 (0.9-1.1) H 12/11/22 06:41 APTT 27.9 Seconds (21.0-31.0) 12/10/22 10:05 PTT Ratio 1.0 12/10/22 10:05 Sodium 135 mmol/L (136-145) L 12/11/22 06:41 Potassium 3.4 mmol/L (3.5-5.1) L 12/11/22 06:41 Chloride 107 mmol/L (98-107) 12/11/22 06:41 Carbon Dioxide 21 mmol/L (21-32) 12/11/22 06:41 Anion Gap 7 (3-11) 12/11/22 06:41 BUN 5 mg/dl (6-23) L 12/11/22 06:41 Creatinine 0.53 mg/dl (0.6-1.2) L 12/11/22 06:41 Est Cr Clr Drug Dosing 129.1 ml/min 12/11/22 06:41 Est GFR ( Amer) 119.6 ml/min 12/11/22 06:41 Est GFR (Non-Af Amer) 103.2 ml/min 12/11/22 06:41 BUN/Creatinine Ratio 9.4 (10-20) L 12/11/22 06:41 Glucose 99 mg/dl (70-99(Fasting)) 12/11/22 06:41 Calcium 7.8 mg/dl (8.6-10.3) L 12/11/22 06:41 Phosphorus 2.0 mg/dl (2.5-4.9) L D 12/11/22 06:41 Magnesium 1.8 mg/dl (1.7-2.4) 12/11/22 06:41 Total Bilirubin 1.2 mg/dl (0.2-1.0) H 12/11/22 06:41 AST 372 U/L (13-39) H 12/11/22 06:41 ALT 204 U/L (7-52) H 12/11/22 06:41 Alkaline Phosphatase 94 U/L (34-104) 12/11/22 06:41 Total Creatine Kinase 45 U/L (26-192) 12/11/22 06:41 Total Protein 5.5 gm/dl (6.0-8.3) L 12/11/22 06:41 Albumin 3.5 gm/dl (3.4-5.0) 12/11/22 06:41 Globulin 2.0 gm/dl (2.5-4.0) L 12/11/22 06:41 Albumin/Globulin Ratio 1.8 (0.9-2) 12/11/22 06:41 TSH 2.769 uIu/ml (0.300-4.500) 12/10/22 10:05 Urine Color Yellow 12/10/22 Unknown Urine Appearance Cloudy (Clear) A 12/10/22 Unknown Urine pH 6.5 (4.5-7.5) 12/10/22 Unknown Ur Specific [place] 1.004 (1.000-1.030) 12/10/22 Unknown Urine Protein Trace (Negative) H 12/10/22 Unknown Urine Glucose (UA) Negative (Negative) 12/10/22 Unknown Urine Ketones Negative (Negative) 12/10/22 Unknown Urine Blood 3+ (Negative) H 12/10/22 Unknown Urine Nitrite Negative (Negative) 12/10/22 Unknown Urine Bilirubin Negative (Negative) 12/10/22 Unknown Urine Urobilinogen Negative (Negative) 12/10/22 Unknown Ur Leukocyte Esterase 3+ (Negative) H 12/10/22 Unknown Urine WBC (Auto) >30 /hpf (0-5) H 12/10/22 Unknown Urine RBC (Auto) 5-10 /hpf (0-4) H 12/10/22 Unknown U Hyaline Cast (Auto) 1-5 /lpf (0-5) 12/10/22 Unknown U Epithel Cells (Auto) >30 /lpf (0-5) H 12/10/22 Unknown Urine Bacteria (Auto) 1+ (Negative) H 12/10/22 Unknown Urine Yeast Not Reportable 12/10/22 Unknown Salicylates < 3.0 mg/dl (3.0-30) L 12/10/22 10:05 Urine Opiates Screen Neg (Neg) 12/10/22 Unknown Ur Methadone, Qual Neg (Neg) 12/10/22 Unknown Acetaminophen 7 ug/ml (10-30) L 12/10/22 10:05 Urine Barbiturates Neg (Neg) 12/10/22 Unknown Ur Phencyclidine (PCP) Neg (Neg) 12/10/22 Unknown U Amphetamin/Meth Scrn Neg (Neg) 12/10/22 Unknown MDMA (Ecstasy) Screen Neg (Neg) 12/10/22 Unknown U Benzodiazepines Scrn Neg (Neg) 12/10/22 Unknown Ur Cocaine Metabolite Neg (Neg) 12/10/22 Unknown U Marijuana (THC) Screen Neg (Neg) 12/10/22 Unknown Ethyl Alcohol mg/dL < 10.0 mg/dl (<10.0) 12/10/22 10:47
[2022-12-11] MEDS: ALPRAZolam 0.25 MG TABLET PO PRN (15:52)
--- NOTE | 2022-12-11 18:50 | Electrocardiogram Report ---
Test Reason : Blood Pressure : / mmHG Vent. Rate : 107 BPM Atrial Rate : 107 BPM P-R Int : 146 ms QRS Dur : 122 ms QT Int : 390 ms P-R-T Axes : 070 046 038 degrees QTc Int : 520 ms Sinus tachycardia with occasional Premature ventricular complexes Right bundle branch block Abnormal ECG When compared with ECG of 10-DEC-2022 10:15, Premature ventricular complexes are now Present Confirmed by Triston Ureña ([id number]) on 12/11/2022 6:49:50 PM Referred By: REFERRED SELF Confirmed By:Corey Ureña
[2022-12-11] MEDS: MELATONIN 3 MG TAB PO PRN (20:29)
[2022-12-12 00:19] LABS: Albumin Globulin Ratio 1.4 (0.9-2); Albumin Level 3.8 gm/dl (3.4-5.0); Bilirubin,Total 0.9 mg/dl (0.2-1.0); Calcium 8.3 mg/dl (8.6-10.3); Creatinine Clr Calc Pharmacy 136.9 ml/min; Est GFR (African American) 121.9 ml/min; Est GFR (Non-African American) 105.2 ml/min; Globulin 2.7 gm/dl (2.5-4.0); Potassium 3.4 mmol/L (3.5-5.1); Total Protein 6.5 gm/dl (6.0-8.3)
[2022-12-12 00:54] LABS: Prothrombin Time 11.4 Seconds (9.0-12.0)
[2022-12-12] MEDS: AcetylCYSTEINE 10,000 MG in DEXTROSE 5% 1,000 ML IV SCH ×2 (04:44→20:56)
[2022-12-12] MEDS ORDERED: LABETALOL HCL IV 5 MG/ML 20ML IV STA (06:17)
[2022-12-12] MEDS: LEVOTHYROXINE SODIUM 125 MCG TABLET PO SCH (06:28)
[2022-12-12 07:59] LABS: Albumin Globulin Ratio 1.5 (0.9-2); Albumin Level 3.5 gm/dl (3.4-5.0); BUN Creatinine Ratio 5.1 (10-20); Bilirubin,Total 0.9 mg/dl (0.2-1.0); Calcium 8.1 mg/dl (8.6-10.3); Creatinine Clr Calc Pharmacy 175.5 ml/min; Est GFR (African American) 132.3 ml/min; Est GFR (Non-African American) 114.2 ml/min; Globulin 2.4 gm/dl (2.5-4.0); Potassium 3.2 mmol/L (3.5-5.1); Total Protein 5.9 gm/dl (6.0-8.3)
[2022-12-12] MEDS: NIFEdipine EXTENDED REL 30 MG TABCR PO SCH (09:06)
[2022-12-12] MEDS: ALPRAZolam 0.25 MG TABLET PO PRN ×2 (11:43→19:27)
--- NOTE | 2022-12-12 12:49 | Hospitalist Progress Note ---
Date of Service December 12, 2022 Assessment & Plan (1) Intentional overdose: Plan: Intentional overdose with acetaminophen Patient took 3 handfuls of tylenol night prior to presentation to the ED intention to kill herself. She started to have nausea, weakness and diarrhea; presented to the ED. Tylenol level of 7 ug/ml. AST/ALT/ALP elevated to 414/178/178 on admission; On today's lab; 242 /251/ 100. Started on NAC in the ED. Due to persistent liver elevation; NAC infusion extended. Repeat PT/INR and LFTs to be done at 4 PM today to determine mine extension of therapy. Poison control on board. Continue on telemetry. Discussed with psychiatry; patient to be admitted to inpatient psychiatry after medical clearance. Suicide precautions. Hypertension No prior history of hypertension in the past However, patient's blood pressure has increased likely secondary to anxiety/situational. will start her on nifedipine 60 mg once a day. Long-term antihypertensive to be determined based on her BP/ (2) Hypothyroid: Plan: TSH 2.7 - continue home synthroid Plan Full code DVT prophylaxis SCDs Dispo-transfer to inpatient psychiatry after medical clearance. Patient continues to be in medical service due to need for NAC for tylenol overdose. Time spent evaluating patient, direct bedside care, chart review, placing orders, interpretation of diagnostic studies, discussion with consultants, patient, and family members, as well as other required patient management activities is 60 minutes. Please note the above document was generated using voice recognition software. It may contain grammatical, syntax or spelling errors. Any formal questions or concerns about the content, text or information contained within the body of this dictation should be directly addressed to the provider for clarification Admission and Anticipated Discharge Date Admission Date: December 10, 2022 Subjective Patient seen and examined at bedside. She is comfortably lying on the bed; not in any distress. Did not complain of nausea or vomiting. No abdominal pain. Review of Systems Review of Systems: All systems reviewed & are unremarkable except as noted in Subjective Physical Exam Physical Exam: Constitutional: WD/WN, vitals as above, NAD, sitting up in bed, pleasant, conversing easily Respiratory: normal respiratory effort, lungs clear to auscultation, no wheeze, rales, rhonchi. Normal insp/exp effort, no accessory muscle use Cardiovascular: RRR, no murmur, no edema Vessels: no JVD or carotid bruit Chest: normal inspection of chest Abdomen: normal bowel sounds, soft, nontender, no hepatosplenomegaly Musculoskeletal: no cyanosis or clubbing, extremities motor strength 5/5 Skin: no rashes, warm and dry normal turgor Neurologic: PERRL, EOMI, accommodation nl, no face palsy, no dysarthria CN's II- XI intact bilaterally and moves all extremities Psychiatric: A+Ox3, euthymic affect Results & Data Results & Data Vital Signs (Past 12 Hours) Vital Signs Pulse Pulse Resp BP BP Pulse Ox O2 Del Method 12/12/22 11:49 101 H 17 154/92 H 97 Room Air 12/12/22 11:00 100 H 24 154/92 H 99 Room Air 12/12/22 09:00 100 H 14 96 Room Air 12/12/22 09:00 161/81 H 12/12/22 08:00 92 H 18 12/12/22 08:00 156/90 H 12/12/22 07:44 159/89 H 12/12/22 07:44 84 19 12/12/22 07:00 87 20 12/12/22 07:00 201/89 H 12/12/22 07:08 88 12/12/22 06:42 93 H 12/12/22 06:37 95 H 22 194/104 H 12/12/22 06:25 89 12/12/22 06:09 94 H 24 199/111 H 96 Room Air 12/12/22 03:00 89 22 97 Room Air Laboratory Results Laboratory Results WBC 4.75 K/ul (4.8-10.8) L 12/11/22 06:41 RBC 4.26 M/uL (4.20-5.40) 12/11/22 06:41 Hgb 12.6 g/dl (12.0-16.0) 12/11/22 06:41 Hct 36.4 % (37.0-47.0) L 12/11/22 06:41 MCV 85.4 fL (80.0-100.0) 12/11/22 06:41 MCH 29.6 pg (25.0-34.0) 12/11/22 06:41 MCHC 34.6 g/dL (32.0-36.0) 12/11/22 06:41 RDW Std Deviation 51.0 fL (36.4-46.3) H 12/11/22 06:41 RDW Coeff of Stefan 16.7 % (11.5-14.5) H 12/11/22 06:41 Plt Count 141 K/uL (130-400) 12/11/22 06:41 MPV 9.6 fL (9.4-12.4) 12/11/22 06:41 Immature Gran % (Auto) 0.2 % 12/10/22 10:05 Neut % (Auto) 83.2 % 12/10/22 10:05 Lymph % (Auto) 13.0 % 12/10/22 10:05 [place] % (Auto) 2.9 % 12/10/22 10:05 Eos % (Auto) 0.3 % 12/10/22 10:05 Baso % (Auto) 0.4 % 12/10/22 10:05 Neut # (Auto) 8.01 K/uL (1.40-6.50) H 12/10/22 10:05 Lymph # (Auto) 1.25 K/uL (1.20-3.40) 12/10/22 10:05 Walsh # (Auto) 0.28 K/uL (0.11-0.59) 12/10/22 10:05 Eos # (Auto) 0.03 K/uL (0.00-0.50) 12/10/22 10:05 Baso # (Auto) 0.04 K/uL (0.00-0.20) 12/10/22 10:05 Immature Gran # (Auto) 0.02 K/uL (0.01-0.20) 12/10/22 10:05 PT 11.4 Seconds (9.0-12.0) 12/11/22 23:52 INR 1.0 (0.9-1.1) 12/11/22 23:52 APTT 27.9 Seconds (21.0-31.0) 12/10/22 10:05 PTT Ratio 1.0 12/10/22 10:05 Sodium 136 mmol/L (136-145) 12/12/22 07:12 Potassium 3.2 mmol/L (3.5-5.1) L 12/12/22 07:12 Chloride 104 mmol/L (98-107) 12/12/22 07:12 Carbon Dioxide 25 mmol/L (21-32) 12/12/22 07:12 Anion Gap 7 (3-11) 12/12/22 07:12 BUN 2 mg/dl (6-23) L 12/12/22 07:12 Creatinine 0.39 mg/dl (0.6-1.2) L 12/12/22 07:12 Est Cr Clr Drug Dosing 175.5 ml/min 12/12/22 07:12 Est GFR ( Amer) 132.3 ml/min 12/12/22 07:12 Est GFR (Non-Af Amer) 114.2 ml/min 12/12/22 07:12 BUN/Creatinine Ratio 5.1 (10-20) L 12/12/22 07:12 Glucose 124 mg/dl (70-99(Fasting)) H 12/12/22 07:12 Calcium 8.1 mg/dl (8.6-10.3) L 12/12/22 07:12 Phosphorus 2.0 mg/dl (2.5-4.9) L D 12/11/22 06:41 Magnesium 1.8 mg/dl (1.7-2.4) 12/11/22 06:41 Total Bilirubin 0.9 mg/dl (0.2-1.0) 12/12/22 07:12 AST 242 U/L (13-39) H 12/12/22 07:12 ALT 251 U/L (7-52) H 12/12/22 07:12 Alkaline Phosphatase 100 U/L (34-104) 12/12/22 07:12 Total Creatine Kinase 45 U/L (26-192) 12/11/22 06:41 Total Protein 5.9 gm/dl (6.0-8.3) L 12/12/22 07:12 Albumin 3.5 gm/dl (3.4-5.0) 12/12/22 07:12 Globulin 2.4 gm/dl (2.5-4.0) L 12/12/22 07:12 Albumin/Globulin Ratio 1.5 (0.9-2) 12/12/22 07:12 TSH 2.769 uIu/ml (0.300-4.500) 12/10/22 10:05 Urine Color Yellow 12/10/22 Unknown Urine Appearance Cloudy (Clear) A 12/10/22 Unknown Urine pH 6.5 (4.5-7.5) 12/10/22 Unknown Ur Specific [place] 1.004 (1.000-1.030) 12/10/22 Unknown Urine Protein Trace (Negative) H 12/10/22 Unknown Urine Glucose (UA) Negative (Negative) 12/10/22 Unknown Urine Ketones Negative (Negative) 12/10/22 Unknown Urine Blood 3+ (Negative) H 12/10/22 Unknown Urine Nitrite Negative (Negative) 12/10/22 Unknown Urine Bilirubin Negative (Negative) 12/10/22 Unknown Urine Urobilinogen Negative (Negative) 12/10/22 Unknown Ur Leukocyte Esterase 3+ (Negative) H 12/10/22 Unknown Urine WBC (Auto) >30 /hpf (0-5) H 12/10/22 Unknown Urine RBC (Auto) 5-10 /hpf (0-4) H 12/10/22 Unknown U Hyaline Cast (Auto) 1-5 /lpf (0-5) 12/10/22 Unknown U Epithel Cells (Auto) >30 /lpf (0-5) H 12/10/22 Unknown Urine Bacteria (Auto) 1+ (Negative) H 12/10/22 Unknown Urine Yeast Not Reportable 12/10/22 Unknown Salicylates < 3.0 mg/dl (3.0-30) L 12/10/22 10:05 Urine Opiates Screen Neg (Neg) 12/10/22 Unknown Ur Methadone, Qual Neg (Neg) 12/10/22 Unknown Acetaminophen 7 ug/ml (10-30) L 12/10/22 10:05 Urine Barbiturates Neg (Neg) 12/10/22 Unknown Ur Phencyclidine (PCP) Neg (Neg) 12/10/22 Unknown U Amphetamin/Meth Scrn Neg (Neg) 12/10/22 Unknown MDMA (Ecstasy) Screen Neg (Neg) 12/10/22 Unknown U Benzodiazepines Scrn Neg (Neg) 12/10/22 Unknown Ur Cocaine Metabolite Neg (Neg) 12/10/22 Unknown U Marijuana (THC) Screen Neg (Neg) 12/10/22 Unknown Ethyl Alcohol mg/dL < 10.0 mg/dl (<10.0) 12/10/22 10:47
--- NOTE | 2022-12-12 14:50 | Electrocardiogram Report ---
Test Reason : Blood Pressure : / mmHG Vent. Rate : 094 BPM Atrial Rate : 094 BPM P-R Int : 122 ms QRS Dur : 120 ms QT Int : 392 ms P-R-T Axes : 041 053 037 degrees QTc Int : 490 ms Sinus rhythm with Premature atrial complexes Right bundle branch block Abnormal ECG When compared with ECG of 10-DEC-2022 16:57, (unconfirmed) Premature ventricular complexes are no longer Present Premature atrial complexes are now Present Confirmed by Triston Ureña ([id number]) on 12/12/2022 2:49:59 PM Referred By: REFERRED SELF Confirmed By:Corey Ureña
[2022-12-12 18:24] LABS: Albumin Level 4.1 gm/dl (3.4-5.0); Bilirubin Direct 0.2 mg/dl (0-0.2); Bilirubin,Total 0.8 mg/dl (0.2-1.0); Total Protein 6.9 gm/dl (6.0-8.3)
[2022-12-12] MEDS: MELATONIN 3 MG TAB PO PRN (19:27)
[2022-12-12 20:02] LABS: Prothrombin Time 10.9 Seconds (9.0-12.0)
[2022-12-13] MEDS: ALPRAZolam 0.25 MG TABLET PO PRN ×3 (02:38→15:49)
[2022-12-13] MEDS ORDERED: IBUPROFEN 200 MG TAB PO STA (05:28)
[2022-12-13] MEDS: LEVOTHYROXINE SODIUM 125 MCG TABLET PO SCH (05:37)
[2022-12-13 06:46] LABS: Albumin Globulin Ratio 1.4 (0.9-2); BUN Creatinine Ratio 7.9 (10-20); Bilirubin,Total 0.8 mg/dl (0.2-1.0); Calcium 9.1 mg/dl (8.6-10.3); Creatinine Clr Calc Pharmacy 180.1 ml/min; Est GFR (African American) 133.4 ml/min; Est GFR (Non-African American) 115.1 ml/min; Globulin 2.8 gm/dl (2.5-4.0); Potassium 3.5 mmol/L (3.5-5.1); Total Protein 6.8 gm/dl (6.0-8.3)
--- NOTE | 2022-12-13 07:26 | CT Scan Report ---
CT head/brain wo con CLINICAL HISTORY: 62 years-old Female with roth. Acute headache TECHNIQUE: Multiple axial CT images of the head were obtained without contrast. A dose lowering tech nique was utilized adhering to the principles of ALARA. CT DOSE: 625.80 mGy.cm COMPARISON: None. FINDINGS: No acute intracranial hemorrhage, midline shift, intracranial mass, hydrocephalus, territorial ischem ia or abnormal extra-axial collection. Mild involutional changes. The calvarium is intact. The paranasal sinuses, mastoid air cells, and middle ear cavities are clear . IMPRESSION: No acute intracranial abnormality. ACT 112: Negative or not required by law. The above report was generated using voice recognition software. It may contain grammatical, syntax o r spelling errors. Electronically signed by: Dallas Varghese M.D. 12/13/2022 7:23 AM
[2022-12-13] MEDS: NIFEdipine EXTENDED REL 30 MG TABCR PO SCH (08:57)
--- NOTE | 2022-12-13 15:56 | Discharge Summary ---
Date of Service December 13, 2022 Admission HPI Per Admitting Provider 62 yo F w/ hx of MDD, hypothyroidism who presents after tylenol overdose. Per ED provider report- pt took about 3 handfuls of tylenol, intentionally. This was confirmed by the pt as well. Patient states that they have been having a rough year, and especially very rough last 2 to 3 weeks. Their daughter was supposed to get , however now she canceled the wedding and also told her parents that she plans to transition to a male. Patient's is currently present at the bedside. Patient's seems to be supportive. Patient states she did not tell him that she took Tylenol last night, she did not tell him until this morning. she says she just wanted "it to end". She was able to eat yesterday, however last night developed diarrhea after taking all the Tylenol. This morning she was having nausea and had diarrhea in the ED. States that she felt little dizzy and lightheaded, however now she would like to drink something. She does not feel short of breath, and does not have chest pain, however her abdomen feels bloated and distended. Patient's tells me that he called poison control and he was advised to take the patient to the ED. Poison control was contacted and ED provider discussed w/ pharmacy and started pt on NAC. In the ED ECG was also obtained, showed prolonged QTc. Patient also tells me that for her behavioral health she follows with [facility]. She used to be on Zoloft, however now takes Prozac 80 mg daily and she did take the medication yesterday and today. She also was prescribed trazodone as needed and hydroxyzine as needed. She reports taking Synthroid 125 mcg daily. In addition to that she also follows with holistic doctor and uses topical estrogen and progesterone. Admission Exam Per Admitting Provider Constitutional: WD/WN, vitals as above (obese F in NAD) Eyes: PERRL, conjunctivae normal, anicteric sclerae ENMT: external ear and nose normal, oropharynx normal Neck: trachea midline, no thyromegaly Respiratory: normal respiratory effort, lungs clear to auscultation Cardiovascular: RRR, no murmur, no edema Chest (Breasts): Chest: normal inspection of chest Gastrointestinal (Abdomen): normal bowel sounds, soft, nontender, no hepatosplenomegaly Musculoskeletal: no cyanosis or clubbing, extremities motor strength 5/5 Skin: no rashes, warm and dry Neurologic: PERRL, EOMI, accommodation nl, no face palsy, no dysarthria Psychiatric: A+Ox3, euthymic affect Principal Diagnosis Intentional overdose with acetaminophen Hypertension Discharge Exam Constitutional: WD/WN, vitals as above, NAD, sitting up in bed, pleasant, conversing easily Respiratory: normal respiratory effort, lungs clear to auscultation, no wheeze, rales, rhonchi. Normal insp/exp effort, no accessory muscle use Cardiovascular: RRR, no murmur, no edema Vessels: no JVD or carotid bruit Chest: normal inspection of chest Abdomen: normal bowel sounds, soft, nontender, no hepatosplenomegaly Musculoskeletal: no cyanosis or clubbing, extremities motor strength 5/5 Skin: no rashes, warm and dry normal turgor Neurologic: PERRL, EOMI, accommodation nl, no face palsy, no dysarthria CN's II- XI intact bilaterally and moves all extremities Psychiatric: A+Ox3, euthymic affect Discharge Data Allergies Allergy/AdvReac Type Severity Reaction Status Date / Time Penicillins Allergy Intermediate SWELLING/HI Verified 12/25/18 15:31 VES Sulfa (Sulfonamide Allergy Mild RASH Verified 12/25/18 15:31 Antibiotics) sulfamethoxazole Allergy Mild RASH Verified 11/07/18 08:08 trimethoprim Allergy Mild RASH Verified 11/07/18 08:08 Consultations 12/10/22 11:32 ED Decision to Admit Stat 12/10/22 12:49 Consult Psychiatry Routine Ordered Studies 12/13/22 05:28 CT head/brain wo con Stat Hospital Course (1) Intentional overdose: Per Prior Attending w/ Addendum: Intentional overdose with acetaminophen Patient took 3 handfuls of tylenol night prior to presentation to the ED intention to kill herself. She started to have nausea, weakness and diarrhea; presented to the ED. Tylenol level of 7 ug/ml. AST/ALT/ALP elevated to 414/178/178 on admission; On today's lab; 242 /251/ 100. Started on NAC in the ED. Due to persistent liver elevation; NAC infusion extended. Repeat PT/INR and LFTs to be done at 4 PM today to determine mine extension of therapy. Poison control on board. Continue on telemetry. Discussed with psychiatry; patient to be admitted to inpatient psychiatry after medical clearance. Suicide precautions. Hypertension No prior history of hypertension in the past However, patient's blood pressure has increased likely secondary to anxiety/situational. will start her on nifedipine 60 mg once a day. Long-term antihypertensive to be determined based on her BP/ (2) Hypothyroid: TSH 2.7 - continue home synthroid Plan Full code DVT prophylaxis SCDs Dispo-transfer to inpatient psychiatry after medical clearance. Patient continues to be in medical service due to need for NAC for tylenol overdose. ADDENDUM: Patient was seen and examined at bedside, received CT head today for headache, no acute abnormality. Patient without any signs and symptoms of febrile illness. Blood pressure fairly under control after being started on nifedipine, discussed about the need for blood pressure medication and need for monitoring blood pressure on the long-term basis and following up with PCP with patient's and patient at bedside. COVID test was obtained, negative. Discussed with psychiatry, patient is being discharged to [facility]. Per poison control, she is stable from their point of view. She is being discharged to [facility] with following instruction at the point of discharge: You are being discharged to [facility]. Once discharged from there, you need to follow-up with your PCP in a week time. You will need repeat LFT in 1 week and then follow-up LFT based on the evaluation at the time. Coordinate with the PCP office for the test LFT. For your hypertension, you are being discharged on blood pressure medication. Measure blood pressure twice a day to maintain a log to take to her PCP office to help with further recommendation on your blood pressure management. Take your medications as prescribed. Home Health Attestation I certify that this patient is under my care and that I, or a physicians certified physical therapist assistant working with me, had a face to-face encounter that meets the home health [id number] encounter requirements with this patient. The encounter with the patient was in whole, or in part, for the following medical condition, which is the primary reason for home health care (list medical condition): I certify that, based on my findings, the following services are medically necessary home health services: My clinical findings support the need for the above services because: Further, I certify that my clinical findings support that this patient is homebound (i.e. absences from home require considerable and taxing effort and are for medical reasons or moravian services or infrequently or of short duration when for other reasons) because: Certification for Home Health Services: Based on the above findings, I certify that this patient is confined to the home and needs intermittent long-term care, physical therapy and/or speech therapy or continues to need occupational therapy. The patient is under my care, and I have initiated the establishment of the plan of care. This patient will be followed by a physician who will periodically review the plan of care. Total Time Total Time Spent Total Time Spent (In Minutes): 35 Discharge Plan Discharge Items Patient Disposition: Transfer Behavioral Health Fac Reason For Visit: OVERDOSE Discharge Diagnosis: Intentional overdose with acetaminophen Hypertension Activity: Resume your previous activity Non-emergency contact: Primary Care Provider Call non-emergency contact if: you have any medication questions Follow-up/Referrals: PCP,NO [Primary Care Provider] - Diet: Low Sodium (2gm) Addtl Attending Provider Instructions: You are being discharged to [facility]. Once discharged from there, you need to follow-up with your PCP in a week time. You will need repeat LFT in 1 week and then follow-up LFT based on the evaluation at the time. Coordinate with the PCP office for the test LFT. For your hypertension, you are being discharged on blood pressure medication. Measure blood pressure twice a day to maintain a log to take to her PCP office to help with further recommendation on your blood pressure management. Take your medications as prescribed. Pending Studies at Discharge: No Stand-Alone Forms: [facility] Medications and DC Order Prescriptions: New nifedipine [Procardia XL] 30 mg Tablet Extended Release 24hr 60 mg PO QAM Qty: 30 0RF Continued levothyroxine 125 mcg Capsule 125 mcg PO QAM Rx Instructions: must be synthriod Caltrate 600 plus D 600 mg (1,500 mg)-800 unit Tablet,Chewable 1 tab PO BID ferrous sulfate [iron] 325 mg (65 mg iron) Tablet 325 mg PO DAILY Probiotic 3 billion cell Capsule 3,000 mmu cells PO DAILY PRN (Reason: Other) Estrogen 6 ml EXT DAILY Rx Instructions: EXTERNAL CREAM USED DAILY Held Nature Thyroid 0.5 tab PO HS Hold Instructions: Resume on 01/05/23. Until further eval by your PCP. Not seen in your OP chart. fluoxetine 40 mg capsule 80 mg PO QAM Hold Instructions: Resume on 12/14/22. Until further inpatient psychiatric evaluation. trazodone 50 mg tablet 50 mg PO HS PRN (Reason: Sleep) Hold Instructions: Resume on 12/14/22. Until further inpatient psychiatric evaluation. hydroxyzine HCl 25 mg tablet 25 mg PO PM Hold Instructions: Resume on 12/14/22. Progestin Syringe See Rx Instructions .ROUTE .COMPLEX Hold Instructions: Resume on 01/04/23. Until further eval by your Gynecology. This medication Not seen in your outpatient record. Rx Instructions: Per pt the medications comes in a syringe and she uses it on top of her legs Discharge Orders: Discharge Order (Routine); Ordered 12/13/22 Ordered By: Miles Llanes Admission Data Admit Date/Time: 12/10/22 13:33 Attending Provider: Miles Llanes Admit Provider: Karl East Primary Care Provider: PCP,NO Other Providers: Karl East ; Hina Gray ; Aby Gauthier ; Earl De La Cruz
== END 2022-12-13 17:08 | DRG 885 ==
LOC: ED 09:54 → EDINP 13:33 → SUATTDRO 13:33 → 4W 15:34

== ENCOUNTER 2022-12-13 14:35 | Inpatient (IN) ==
[2022-12-13] MEDS ORDERED: BISMUTH SUBSALICYLATE LIQD 236 ML PO PRN (17:21)
[2022-12-13] MEDS ORDERED: MAGNESIUM HYDROXIDE SUSP 30 ML UDC PO PRN (17:21)
[2022-12-13] MEDS ORDERED: SODIUM CHLORIDE 0.65% NA SOLN 45 ML (OCEAN) PRN (17:21)
[2022-12-13] MEDS ORDERED: ACETAMINOPHEN 325 MG TAB PO PRN (17:21)
[2022-12-13] MEDS ORDERED: ALUMINUM/MAGNESIUM SUSP 30 ML UDC PO PRN (17:21)
[2022-12-13] MEDS: hydrOXYzine HCl 25 MG TAB PO PRN (21:38)
[2022-12-14] MEDS: LEVOTHYROXINE SODIUM 125 MCG TABLET PO SCH (09:33)
[2022-12-14] MEDS: hydrOXYzine HCl 25 MG TAB PO PRN ×2 (09:34→21:24)
[2022-12-14] MEDS: NIFEdipine EXTENDED REL 30 MG TABCR PO SCH (09:36)
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
[2022-12-14] MEDS ORDERED: MELATONIN 3 MG TAB PO PRN (15:33)
--- NOTE | 2022-12-14 18:48 | Electrocardiogram Report ---
Test Reason : Blood Pressure : / mmHG Vent. Rate : 102 BPM Atrial Rate : 102 BPM P-R Int : 128 ms QRS Dur : 122 ms QT Int : 390 ms P-R-T Axes : 027 062 052 degrees QTc Int : 508 ms Sinus tachycardia with Premature atrial complexes Right bundle branch block Abnormal ECG When compared with ECG of 11-DEC-2022 12:50, No significant change was found Confirmed by Triston Ureña ([id number]) on 12/14/2022 6:48:21 PM Referred By: Hina Gray Confirmed By:Corey Ureña
[2022-12-14] MEDS ORDERED: MIRTAZAPINE TAB 15 MG TAB PO SCH (22:00)
[2022-12-15] MEDS: NIFEdipine EXTENDED REL 30 MG TABCR PO SCH (08:27)
[2022-12-15] MEDS: LEVOTHYROXINE SODIUM 125 MCG TABLET PO SCH (08:27)
[2022-12-15] MEDS ORDERED: buPROPion XL 150 MG TABCR PO SCH (09:00)
[2022-12-15] MEDS: hydrOXYzine HCl 25 MG TAB PO PRN (12:27)
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
[2022-12-15] MEDS ORDERED: MIRTAZAPINE TAB 15 MG TAB PO SCH (22:00)
[2022-12-16] MEDS: NIFEdipine EXTENDED REL 30 MG TABCR PO SCH (08:33)
[2022-12-16] MEDS: LEVOTHYROXINE SODIUM 125 MCG TABLET PO SCH (08:33)
[2022-12-16] MEDS: hydrOXYzine HCl 25 MG TAB PO PRN ×3 (09:47→21:06)
[2022-12-16 12:46] LABS: Albumin Level 4.4 gm/dl (3.4-5.0); Bilirubin Direct 0.3 mg/dl (0-0.2); Bilirubin,Total 0.9 mg/dl (0.2-1.0); Total Protein 7.7 gm/dl (6.0-8.3)
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
[2022-12-17] MEDS: LEVOTHYROXINE SODIUM 125 MCG TABLET PO SCH (08:11)
[2022-12-17] MEDS: NIFEdipine EXTENDED REL 30 MG TABCR PO SCH (08:11)
[2022-12-17] MEDS: hydrOXYzine HCl 25 MG TAB PO PRN (08:12)
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
--- NOTE | 2022-12-17 11:19 | Electrocardiogram Report ---
Test Reason : Blood Pressure : / mmHG Vent. Rate : 100 BPM Atrial Rate : 100 BPM P-R Int : 126 ms QRS Dur : 122 ms QT Int : 406 ms P-R-T Axes : 012 072 047 degrees QTc Int : 523 ms Normal sinus rhythm Right bundle branch block Abnormal ECG When compared with ECG of 14-DEC-2022 15:28, Premature atrial complexes are no longer Present Confirmed by [place] ([id number]) on 12/17/2022 11:19:37 AM Referred By: Hina Gray Confirmed By:[place]
== END 2022-12-17 10:35 | disposition home or self-care (01) | DRG 885 ==
LOC: 3S 17:18 → SUATTDRO 17:21